=== PATIENT | male | born 1950 | race Caucasian/White ===

== ENCOUNTER 2024-09-28 14:49 | Emergency (ER) | payer MEDICARE ==
[~2024-09-28] VITALS: Ht 177.8 cm; Wt 90.7 kg
[~2024-09-28 14:49] MED LIST: ALBU90OI INH; AZIT250 PO; ELIQUIS2.5 MG PO; METO25ER PO; Seroquel Xr50 MG PO
[2024-09-28 17:17] LABS: Source, Urine Clean Catch
[2024-09-28 17:27] LABS: Bilirubin, Urine Neg (Neg); Color, Urine Yellow (P-Yellow); Glucose Qualitative, Urine Neg (Neg); Ketones, Urine Neg (Neg); Leukocyte Esterase, Urine 2+ (Neg); Protein, Urine 1+ (Neg); Specific Gravity, Urine 1.030 (1.003-1.022); Urobilinogen, Urine 1+ (Normal)
[2024-09-28 17:34] LABS: White Blood Cells, Urine 50-100 /hpf (0-5)
[2024-09-28] MEDS ORDERED: BACTRIM DS TAB1 EAC1 PO (17:45)
[2024-09-28] MEDS ORDERED: Trimethoprim/Sulfamethoxazole DS Tab PO ONE (17:45)
== END 2024-09-28 18:06 | disposition home or self-care (01) ==
LOC: ER 14:49
PROVIDERS: Student in an Organized Health Care Education/Training Program
DX: I83.218 Varicose veins of right lower extremity with both ulcer of other part of lower extremity and inflammation (principal); L97.811 Non-pressure chronic ulcer of other part of right lower leg limited to breakdown of skin; L03.115 Cellulitis of right lower limb; N30.00 Acute cystitis without hematuria; I48.91 Unspecified atrial fibrillation; F17.210 Nicotine dependence, cigarettes, uncomplicated; I10 Essential (primary) hypertension; Z79.01 Long term (current) use of anticoagulants; Z79.899 Other long term (current) drug therapy
CPT/HCPCS: 81001; 87077; 87086; 87186; 99283; A9270